=== PATIENT | female | born 2000 | race Caucasian/White ===

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

== ENCOUNTER 2020-10-16 04:21 | Emergency (ER) | payer BC ==
[2020-10-16 04:51] VITALS: BMI 20.2
[2020-10-16 05:18] LABS: BASO % 0.4 % (0-2.0); EOS % 0.2 % (0-4.5); HEMATOCRIT 41.7 % (32.4-45.2); HEMOGLOBIN 14.3 GM/dL (10.7-15.3); LYMPH % 10.4 % (8-40); MCH 30.1 pg (25.7-33.7); MCHC 34.3 g/dl (32.0-36.0); MEAN CELL VOLUME 87.7 fl (80-96); MEAN PLT VOLUME 6.7 fl (7.5-11.1); PLATELET COUNT 334 10^3/uL (134-434); RBC 4.76 M/mm3 (3.60-5.2); RDW 13.3 % (11.6-15.6); WHITE BLOOD COUNT 13.4 K/mm3 (4.0-10.0)
[2020-10-16] MEDS ORDERED: ACETAMINOPHEN 1000 MG/100 ML VIAL (NON FORMULARY) IVPB ONE (05:22)
[2020-10-16] MEDS ORDERED: ONDANSETRON 4 MG/2 ML VIAL IVPUSH ONE (05:22)
[2020-10-16] MEDS ORDERED: SODIUM CHLORIDE 0.9% 500 ML INFUS.BAG IV ONE (05:22)
[2020-10-16 05:30] LABS: CHLORIDE 105 mmol/L (98-107); SODIUM 138 mmol/L (136-145)
[2020-10-16 05:32] LABS: CALCIUM 9.1 mg/dL (8.5-10.1)
[2020-10-16 05:33] LABS: ALBUMIN 4.2 g/dl (3.4-5.0); ANION GAP 9 MMOL/L (8-16); BLOOD UREA NITROGEN 8.9 mg/dL (7-18); CO2 25 mmol/L (21-32); GLUCOSE,RANDOM 94 mg/dL (74-106)
[2020-10-16 05:36] LABS: CREATININE 0.8 mg/dL (0.55-1.3); SGOT/AST 17 U/L (15-37); SGPT/ALT 20 U/L (13-61)
[2020-10-16 05:37] LABS: BILIRUBIN,TOTAL 0.4 mg/dL (0.2-1); TOT PROT 7.8 g/dl (6.4-8.2)
[2020-10-16 05:38] LABS: ALK PHOS 76 U/L (45-117)
[2020-10-16] MEDS ORDERED: ONDANSETRON 4 MG/2 ML VIAL ONE (05:41)
[2020-10-16] MEDS ORDERED: ACETAMINOPHEN INJECTION 100 ML IVPB ONE (05:41)
[2020-10-16 06:37] LABS: URINE APPEARANCE CLEAR; URINE BILIRUBIN NEGATIVE (NEGATIVE); URINE COLOR YELLOW; URINE GLUCOSE (UA) NEGATIVE (NEGATIVE); URINE KETONE NEGATIVE (NEGATIVE); URINE LEUK ESTERASE NEGATIVE (NEGATIVE); URINE NITRITE NEGATIVE (NEGATIVE); URINE PROTEIN NEGATIVE (NEGATIVE); URINE UROBILINOGEN 0.2 mg/dL (0.2-1.0)
[2020-10-16 07:18] VITALS: BP 92/50; PULSE 67; TEMP 98.6
== END 2020-10-16 07:50 | disposition home or self-care (01) ==
LOC: JER 04:21
PROC: 3E033NZ Introduction of Analgesics, Hypnotics, Sedatives into Peripheral Vein, Percutaneous Approach (ICD-10-PCS; principal; 2020-10-16)
PROC: 3E033GC Introduction of Other Therapeutic Substance into Peripheral Vein, Percutaneous Approach (ICD-10-PCS; 2020-10-16)
DX: R07.9 Chest pain, unspecified (principal)
CPT/HCPCS: 36415; 71046-TC-FY; 80053; 81003; 82550; 84484; 84703; 85025; 87086; 93005; 93010; 99284-25; C9803; J0131; U0003; U0005

== ENCOUNTER 2020-10-31 10:25 | Emergency (ER) | payer BC ==
[2020-10-31 10:28] VITALS: BP 116/69; PULSE 67; TEMP 98; BMI 20.2
[2020-10-31] MEDS ORDERED: KETOROLAC TROMETHAMINE 30 MG/1 ML VIAL IM ONE (11:25)
[2020-10-31] MEDS ORDERED: DEXAMETHASONE SOD PHOSPHATE 10 MG/1 ML VIAL ONE (11:26)
[2020-10-31] MEDS ORDERED: KETOROLAC TROMETHAMINE 30 MG/1 ML VIAL ONE (11:27)
[2020-10-31] MEDS ORDERED: DEXAMETHASONE 4 MG TABLET (FP) PO ONE (11:30)
== END 2020-10-31 11:36 | disposition home or self-care (01) ==
LOC: JER 10:25
PROC: 3E0233Z Introduction of Anti-inflammatory into Muscle, Percutaneous Approach (ICD-10-PCS; principal; 2020-10-31)
DX: R07.0 Pain in throat (principal)
CPT/HCPCS: 87880; 99284-25; C9803; U0003; U0005

== ENCOUNTER 2021-01-26 11:30 | Emergency (ER) | payer BC ==
[2021-01-26 12:03] VITALS: BP 116/63; PULSE 88; TEMP 98.1; BMI 20.2
[2021-01-26 12:55] LABS: PH,URINE 5.5 (5.0-8.0); URINE APPEARANCE CLEAR; URINE BILIRUBIN NEGATIVE (NEGATIVE); URINE COLOR YELLOW; URINE GLUCOSE (UA) NEGATIVE (NEGATIVE); URINE KETONE NEGATIVE (NEGATIVE); URINE LEUK ESTERASE NEGATIVE (NEGATIVE); URINE NITRITE NEGATIVE (NEGATIVE); URINE PROTEIN NEGATIVE (NEGATIVE); URINE UROBILINOGEN 0.2 mg/dL (0.2-1.0)
[2021-01-26 12:58] LABS: HCG,QUALITATIVE URINE Negative
[2021-01-26] MEDS ORDERED: ONDANSETRON *ODT* 4 MG TABLET SL ONE (13:50)
[2021-01-26] MEDS ORDERED: ONDANSETRON *ODT* 4 MG TABLET ONE (13:52)
== END 2021-01-26 14:10 | disposition home or self-care (01) ==
LOC: JERFT 11:30 → JER 11:30 → JERFT 14:10
DX: R11.0 Nausea (principal)
CPT/HCPCS: 36415; 81003; 84702; 84703; 86850; 86900; 86901; 87086; 87491; 87591; 99283-25; Q0162

== ENCOUNTER 2021-03-14 21:23 | Emergency (ER) | payer BC ==
[2021-03-14 21:31] VITALS: BP 118/78; PULSE 78; TEMP 98.2; BMI 22.2
== END 2021-03-14 23:05 | disposition home or self-care (01) ==
LOC: JERFT 21:23 → JER 21:23 → JERFT 23:05
DX: O21.1 Hyperemesis gravidarum with metabolic disturbance (principal); Z32.01 Encounter for pregnancy test, result positive
CPT/HCPCS: 81003; 84703; 99283-25

== ENCOUNTER 2021-07-07 19:06 | Emergency (ER) | payer BC ==
[2021-07-07 19:20] VITALS: BP 99/60; PULSE 93; BMI 23.2
[2021-07-07 19:35] VITALS: TEMP 97.8
[2021-07-09 10:07] LABS: SARS-CoV-2 NAA Not Detected (Not Detected)
== END 2021-07-07 20:33 | disposition home or self-care (01) ==
LOC: JERFT 19:06
DX: O99.512 Diseases of the respiratory system complicating pregnancy, second trimester (principal); Z3A.16 16 weeks gestation of pregnancy
CPT/HCPCS: 87651; 87804; 99283-25; C9803-CS; U0003; U0005

== ENCOUNTER 2021-09-07 13:02 | Emergency (ER) | payer BC ==
[2021-09-07 13:17] VITALS: BMI 23.4
[2021-09-07] MEDS ORDERED: SODIUM CHLORIDE 1,000 ML IV STA (15:14)
[2021-09-07 16:36] LABS: BASO % 0.2 % (0-2.0); EOS % 0.7 % (0-4.5); HEMATOCRIT 32.8 % (32.4-45.2); HEMOGLOBIN 10.6 GM/dL (10.7-15.3); MCHC 32.4 g/dl (32.0-36.0); MEAN CELL VOLUME 86.2 fl (80-96); MEAN PLT VOLUME 6.3 fl (7.5-11.1); MONO % 7.2 % (3.8-10.2); NEUT % 81.9 % (42.8-82.8); PLATELET COUNT 287 10^3/uL (134-434); RBC 3.81 M/mm3 (3.60-5.2); RDW 13.6 % (11.6-15.6); WHITE BLOOD COUNT 12.1 K/mm3 (4.0-10.0)
[2021-09-07 16:40] LABS: EPI CELLS >36 /uL (0-25.1); HYALINE CASTS 1 /uL (0-3.1); PH,URINE 7.5 (5.0-8.0); URINE APPEARANCE TURBID; URINE BACTERIA >9,000 /uL (0-1359); URINE BILIRUBIN NEGATIVE (NEGATIVE); URINE COLOR YELLOW; URINE GLUCOSE (UA) NEGATIVE (NEGATIVE); URINE KETONE NEGATIVE (NEGATIVE); URINE LEUK ESTERASE 3+ (NEGATIVE); URINE NITRITE NEGATIVE (NEGATIVE); URINE PROTEIN TRACE (NEGATIVE); URINE RBC 15 /uL (0-23.9); URINE UROBILINOGEN 0.2 mg/dL (0.2-1.0); URINE WBC 3491 /uL (0-25.8)
[2021-09-07 16:53] VITALS: BP 112/72
[2021-09-07 16:54] LABS: CALCIUM 8.9 mg/dL (8.5-10.1)
[2021-09-07 16:55] LABS: ALBUMIN 2.9 g/dl (3.4-5.0); BLOOD UREA NITROGEN 4.3 mg/dL (7-18)
[2021-09-07 16:58] LABS: CREATININE 0.4 mg/dL (0.55-1.3)
[2021-09-07 17:00] LABS: BILIRUBIN,TOTAL 0.4 mg/dL (0.2-1); TOT PROT 6.6 g/dl (6.4-8.2)
[2021-09-07 17:18] VITALS: PULSE 68; TEMP 97.8
== END 2021-09-07 17:30 | disposition home or self-care (01) ==
LOC: JER 13:02
PROC: 3E0337Z Introduction of Electrolytic and Water Balance Substance into Peripheral Vein, Percutaneous Approach (ICD-10-PCS; principal; 2021-09-07)
DX: O23.593 Infection of other part of genital tract in pregnancy, third trimester (principal); R42 Dizziness and giddiness; Z3A.30 30 weeks gestation of pregnancy
CPT/HCPCS: 36415; 80053; 81003; 84702; 84703; 85025; 87077; 87086; 93005; 93010; 99284-25

== ENCOUNTER 2021-10-07 17:08 | Inpatient (IN) | payer BC ==
[2021-10-07 17:24] VITALS: BMI 24.2
[2021-10-07] MEDS ORDERED: SODIUM CHLORIDE 1,000 ML IV STA (17:54)
[2021-10-07 18:29] LABS: BASO % 0.2 % (0-2.0); HEMATOCRIT 29.6 % (32.4-45.2); LYMPH % 14.9 % (8-40); MCH 27.3 pg (25.7-33.7); MCHC 33.8 g/dl (32.0-36.0); MEAN CELL VOLUME 80.7 fl (80-96); MEAN PLT VOLUME 6.3 fl (7.5-11.1); MONO % 8.7 % (3.8-10.2); NEUT % 75.2 % (42.8-82.8); PLATELET COUNT 254 10^3/uL (134-434); RBC 3.67 M/mm3 (3.60-5.2); RDW 14.4 % (11.6-15.6); WHITE BLOOD COUNT 10.9 K/mm3 (4.0-10.0)
[2021-10-07 18:39] LABS: INR 0.94 (0.83-1.09); PROTHROMBIN TIME (PATIENT) 10.8 SEC (9.7-13.0)
[2021-10-07 18:50] LABS: ALBUMIN 2.7 g/dl (3.4-5.0); CALCIUM 8.5 mg/dL (8.5-10.1)
[2021-10-07 18:51] LABS: BLOOD UREA NITROGEN 4.1 mg/dL (7-18); MAGNESIUM 1.9 mg/dL (1.8-2.4)
[2021-10-07 18:53] LABS: CREATININE 0.4 mg/dL (0.55-1.3)
[2021-10-07 18:55] LABS: BILIRUBIN,TOTAL 0.3 mg/dL (0.2-1); TOT PROT 6.4 g/dl (6.4-8.2)
[2021-10-07 20:19] LABS: EPI CELLS >36 /uL (0-25.1); HYALINE CASTS 1 /uL (0-3.1); PH,URINE 7.5 (5.0-8.0); URINE APPEARANCE CLOUDY; URINE BACTERIA >9,000 /uL (0-1359); URINE BILIRUBIN NEGATIVE (NEGATIVE); URINE COLOR YELLOW; URINE GLUCOSE (UA) NEGATIVE (NEGATIVE); URINE KETONE NEGATIVE (NEGATIVE); URINE LEUK ESTERASE 3+ (NEGATIVE); URINE NITRITE NEGATIVE (NEGATIVE); URINE PROTEIN NEGATIVE (NEGATIVE); URINE RBC 8 /uL (0-23.9); URINE UROBILINOGEN 0.2 mg/dL (0.2-1.0); URINE WBC 1463 /uL (0-25.8)
[2021-10-07] MEDS ORDERED: ceFAZolin SODIUM 1 GM VIAL ONE (22:54)
[2021-10-07] MEDS: CEFAZOLIN SODIUM 2 GM in DEXTROSE 5%-WATER 100 ML IVPB SCH (23:20)
[2021-10-07] MEDS: ACETAMINOPHEN 325 MG TABLET (FP) PO PRN (23:45)
[2021-10-08] MEDS: ACETAMINOPHEN 325 MG TABLET (FP) PO PRN (09:56)
[2021-10-08] MEDS: CEFAZOLIN SODIUM 2 GM in DEXTROSE 5%-WATER 100 ML IVPB SCH (10:36)
[2021-10-08 20:22] VITALS: BP 105/66; PULSE 70; TEMP 98.9
== END 2021-10-08 21:15 | disposition home or self-care (01) | DRG 832 ==
LOC: JERFT 17:08 → JER 17:08 → JLDR 21:35 → JER 22:13 → J3W 10-08 00:33
PROVIDERS: ADMIT Specialist; ATTEND Specialist
DX: O23.43 Unspecified infection of urinary tract in pregnancy, third trimester (principal); N39.0 Urinary tract infection, site not specified; O26.53 Maternal hypotension syndrome, third trimester; R51.9 Headache, unspecified; Z3A.33 33 weeks gestation of pregnancy
CPT/HCPCS: 36415; 76775-TC; 76801-TC; 80053; 81003; 83735; 85025; 85610; 87077; 87086; 93005; 93010; 99285-25; C9803-CS; U0003; U0005

== ENCOUNTER 2021-11-08 20:15 | Observation (INO) | payer BC, OTHER ==
[2021-11-08] MEDS ORDERED: LACTATED RINGERS SOLUTION 500 ML IV ONE (22:00)
[2021-11-08] MEDS ORDERED: ZOLPIDEM TARTRATE 5 MG TABLET ONE (22:57)
[2021-11-08] MEDS ORDERED: ZOLPIDEM TARTRATE 5 MG TABLET PO ONE (23:00)
[2021-11-08] MEDS ORDERED: LACTATED RINGERS SOLUTION 1,000 ML IV SCH (23:00)
[2021-11-09 06:41] VITALS: BP 110/54; PULSE 73; RESP 18; TEMP 97.5
== END 2021-11-09 10:00 | disposition home or self-care (01) ==
LOC: JDEL 20:15 → JLDR 11-09 03:45
PROVIDERS: ADMIT Specialist; ATTEND Specialist
PROC: 3E0337Z Introduction of Electrolytic and Water Balance Substance into Peripheral Vein, Percutaneous Approach (ICD-10-PCS; principal; 2021-11-09)
DX: O47.9 False labor, unspecified (principal); E86.0 Dehydration; Z3A.37 37 weeks gestation of pregnancy
CPT/HCPCS: 96360; 96361; G0378

== ENCOUNTER 2021-11-20 20:00 | Inpatient (IN) | payer OTHER ==
[2021-11-20] MEDS ORDERED: ELECTROLYTE-148 SOLN 1,000 ML IV SCH (20:45)
[2021-11-20] MEDS ORDERED: DINOPROSTONE 10 MG VAGINAL SUPPOSITORY VG ONE (21:20)
[2021-11-20 22:32] VITALS: BMI 25.2
[2021-11-20] MEDS ORDERED: BUTORPHANOL TARTRATE 1 MG/ML VIAL IVPB ONE (23:22)
[2021-11-20] MEDS ORDERED: PROMETHAZINE HCL 25 MG/1 ML VIAL IVPUSH ONE (23:22)
[2021-11-20] MEDS ORDERED: BUTORPHANOL TARTRATE 2 MG/ML VIAL ONE (23:27)
[2021-11-20] MEDS ORDERED: PROMETHAZINE HCL 25 MG/1 ML VIAL ONE (23:27)
[2021-11-21] MEDS ORDERED: AMPICILLIN SODIUM 2 GM VIAL ONE (00:17)
[2021-11-21] MEDS ORDERED: AMPICILLIN - 2 GM in SODIUM CHLORIDE 100 ML IVPB ONE (01:00)
[2021-11-21] MEDS ORDERED: FENTANYL/BUPIVACAINE/NS/PF - PCEA - 50 ML DISP.SYRIN EP ONE (01:47)
[2021-11-21] MEDS ORDERED: NALOXONE HCL 0.4 MG/ML VIAL IVPUSH PRN (02:17)
[2021-11-21] MEDS ORDERED: FENTANYL/BUPIVACAINE/NS/PF - PCEA - 50 ML DISP.SYRIN EP SCH (02:30)
[2021-11-21] MEDS ORDERED: AMPICILLIN SODIUM 1 GM VIAL ONE (03:59)
[2021-11-21] MEDS ORDERED: OXYTOCIN 20 UNITS in 0.9% NS 20 UNIT/1,000 ML INFUS.BAG IV ONE (04:48)
[2021-11-21] MEDS ORDERED: LIDOCAINE HCL 1% PRESERVATIVE FREE - 30ML VIAL ONE (04:49)
[2021-11-21] MEDS ORDERED: AMPICILLIN - 1 GM in SODIUM CHLORIDE 100 ML IVPB SCH (05:15)
[2021-11-21] MEDS ORDERED: OXYTOCIN 30 UNITS in 0.9% NS 30 UNIT/500 ML INFUS.BAG IVPB SCH (06:00)
[2021-11-21] MEDS ORDERED: WITCH HAZEL 50% (TUCKS) 40 PAD/JAR PAD TP PRN (06:40)
[2021-11-21] MEDS ORDERED: ACETAMINOPHEN 325 MG TABLET (FP) PO PRN (06:40)
[2021-11-21] MEDS ORDERED: oxyCODONE HCL 5 MG TABLET PO PRN (06:40)
[2021-11-21] MEDS ORDERED: METHYLERGONOVINE MALEATE 0.2 MG/1 ML AMP IM PRN (06:40)
[2021-11-21] MEDS ORDERED: BENZOCAINE 20% 57 GM BOTTLE TP PRN (06:40)
[2021-11-21] MEDS ORDERED: BENZOCAINE 28 GM HEMORRHOIDAL OINTMENT TP PRN (06:40)
[2021-11-21] MEDS ORDERED: BISACODYL 10 MG SUPP.RECT RC PRN (06:40)
[2021-11-21] MEDS ORDERED: OXYTOCIN 20 UNITS in 0.9% NS 20 UNIT/1,000 ML INFUS.BAG IV SCH (06:45)
[2021-11-21] MEDS: IBUPROFEN 600 MG TABLET (FP) PO PRN ×2 (15:30→23:56)
[2021-11-22 08:31] LABS: BASO % 0.4 % (0-2.0); EOS % 1.3 % (0-4.5); HEMATOCRIT 22.2 % (32.4-45.2); LYMPH % 21.5 % (8-40); MCH 23.1 pg (25.7-33.7); MCHC 31.4 g/dl (32.0-36.0); MEAN CELL VOLUME 73.8 fl (80-96); MEAN PLT VOLUME 6.8 fl (7.5-11.1); MONO % 9.3 % (3.8-10.2); NEUT % 67.5 % (42.8-82.8); PLATELET COUNT 244 10^3/uL (134-434); RBC 3.01 M/mm3 (3.60-5.2); RDW 16.7 % (11.6-15.6); WHITE BLOOD COUNT 11.3 K/mm3 (4.0-10.0)
[2021-11-22] MEDS: IBUPROFEN 600 MG TABLET (FP) PO PRN ×2 (14:53→23:40)
[2021-11-22] MEDS ORDERED: SENNOSIDES/DOCUSATE COMBO (SENNA PLUS) TABLET (UD) PO PRN (22:00)
[2021-11-23 10:19] VITALS: BP 102/69; PULSE 96; RESP 16; TEMP 98.3
[2021-11-23] MEDS: IBUPROFEN 600 MG TABLET (FP) PO PRN (10:42)
== END 2021-11-23 11:25 | disposition home or self-care (01) | DRG 560 ==
LOC: JLDR 20:00 → J3W 11-21 08:20
PROVIDERS: ADMIT Specialist; ATTEND Specialist
PROC: 3E0P7VZ Introduction of Hormone into Female Reproductive, Via Natural or Artificial Opening (ICD-10-PCS; 2021-11-20)
PROC: 10E0XZZ Delivery of Products of Conception, External Approach (ICD-10-PCS; principal; 2021-11-21)
PROC: 0W8NXZZ Division of Female Perineum, External Approach (ICD-10-PCS; 2021-11-21)
DX: O99.824 Streptococcus B carrier state complicating childbirth (principal); Z3A.39 39 weeks gestation of pregnancy; Z37.0 Single live birth
CPT/HCPCS: 36415; 59409; 85025

== ENCOUNTER 2021-12-15 20:00 | Emergency (ER) | payer BC, OTHER ==
[2021-12-15 20:19] VITALS: BP 95/63; PULSE 95; RESP 18; TEMP 99; BMI 21.8
[2021-12-15] MEDS ORDERED: IBUPROFEN 600 MG TABLET (FP) PO ONE ×2 (21:15→21:24)
== END 2021-12-16 00:24 | disposition home or self-care (01) ==
LOC: JER 20:00
DX: U07.1 COVID-19 (principal)
CPT/HCPCS: 0241U-QW; 99283-25

== ENCOUNTER 2022-03-11 19:36 | Emergency (ER) | payer OTHER ==
[2022-03-11 19:44] VITALS: BP 103/73; PULSE 94; RESP 18; TEMP 99.2; BMI 24.2
[2022-03-11] MEDS ORDERED: SODIUM CHLORIDE 0.9% 500 ML INFUS.BAG IV ONE (21:05)
[2022-03-11] MEDS ORDERED: KETOROLAC TROMETHAMINE 30 MG/1 ML VIAL IVPUSH ONE (21:05)
[2022-03-11] MEDS ORDERED: ONDANSETRON 4 MG/2 ML VIAL IVPUSH ONE (22:03)
[2022-03-11] MEDS ORDERED: ONDANSETRON 4 MG/2 ML VIAL ONE (22:12)
[2022-03-11 23:09] LABS: PH,URINE 5.5 (5.0-8.0); URINE APPEARANCE CLEAR; URINE BILIRUBIN NEGATIVE (NEGATIVE); URINE COLOR YELLOW; URINE GLUCOSE (UA) NEGATIVE (NEGATIVE); URINE KETONE NEGATIVE (NEGATIVE); URINE LEUK ESTERASE NEGATIVE (NEGATIVE); URINE NITRITE NEGATIVE (NEGATIVE); URINE PROTEIN TRACE (NEGATIVE); URINE UROBILINOGEN 0.2 mg/dL (0.2-1.0)
[2022-03-11] MEDS ORDERED: METOCLOPRAMIDE HCL INJECTION 10 MG/2 ML VIAL IVPUSH ONE (23:18)
[2022-03-11] MEDS ORDERED: ACETAMINOPHEN 500 MG TABLET (FP) PO ONE (23:18)
[2022-03-11] MEDS ORDERED: METOCLOPRAMIDE HCL INJECTION 10 MG/2 ML VIAL ONE (23:39)
[2022-03-12] MEDS ORDERED: ACETAMINOPHEN 500 MG TABLET (FP) ONE (00:14)
[2022-03-12] MEDS ORDERED: KETOROLAC TROMETHAMINE 30 MG/1 ML VIAL ONE (00:14)
== END 2022-03-12 00:23 | disposition home or self-care (01) ==
LOC: JER 19:36
PROC: 3E033GC Introduction of Other Therapeutic Substance into Peripheral Vein, Percutaneous Approach (ICD-10-PCS; principal; 2022-03-11)
DX: B34.9 Viral infection, unspecified (principal)
CPT/HCPCS: 0241U-QW; 71046-TC-FY; 81003; 84703; 87086; 99284-25

== ENCOUNTER 2022-03-26 17:03 | Emergency (ER) | payer OTHER ==
[2022-03-26 17:25] VITALS: BP 113/59; PULSE 86; RESP 16; TEMP 100.1; BMI 24.2
[2022-03-26 18:27] LABS: EPI CELLS 31 /uL (0-25.1); HYALINE CASTS 2 /uL (0-3.1); PH,URINE 5.5 (5.0-8.0); URINE APPEARANCE CLOUDY; URINE BACTERIA 245 /uL (0-1359); URINE BILIRUBIN NEGATIVE (NEGATIVE); URINE COLOR YELLOW; URINE GLUCOSE (UA) NEGATIVE (NEGATIVE); URINE KETONE NEGATIVE (NEGATIVE); URINE LEUK ESTERASE 2+ (NEGATIVE); URINE NITRITE NEGATIVE (NEGATIVE); URINE PROTEIN NEGATIVE (NEGATIVE); URINE RBC 6 /uL (0-23.9); URINE UROBILINOGEN 0.2 mg/dL (0.2-1.0); URINE WBC 110 /uL (0-25.8)
[2022-03-26 18:38] LABS: HCG,QUALITATIVE URINE Negative
== END 2022-03-26 20:59 | disposition home or self-care (01) ==
LOC: JERFT 17:03
DX: N30.90 Cystitis, unspecified without hematuria (principal); N83.201 Unspecified ovarian cyst, right side; R50.9 Fever, unspecified
CPT/HCPCS: 36415; 76830-TC; 81003; 84703; 87086; 87491; 87591; 87661; 99284-25

== ENCOUNTER 2022-10-05 20:06 | Emergency (ER) | payer OTHER ==
[2022-10-05 20:14] VITALS: BP 96/56; PULSE 75; RESP 18; TEMP 98.1; BMI 19.6
[2022-10-05] MEDS ORDERED: NAPROXEN 500 MG TABLET PO ONE (20:44)
[2022-10-05] MEDS ORDERED: LIDOCAINE 5% TOPICAL PATCH TP ONE (20:44)
[2022-10-05] MEDS ORDERED: NAPROXEN 500 MG TABLET ONE (20:46)
[2022-10-05] MEDS ORDERED: LIDOCAINE 5% TOPICAL PATCH ONE (20:46)
[2022-10-05 21:38] LABS: HCG,QUALITATIVE URINE Negative
[2022-10-05 21:39] LABS: EPI CELLS 32 /uL (0-25.1); HYALINE CASTS 0 /uL (0-3.1); PH,URINE 7.5 (5.0-8.0); URINE APPEARANCE CLEAR; URINE BACTERIA 81 /uL (0-1359); URINE BILIRUBIN NEGATIVE (NEGATIVE); URINE COLOR YELLOW; URINE GLUCOSE (UA) NEGATIVE (NEGATIVE); URINE KETONE TRACE (NEGATIVE); URINE LEUK ESTERASE TRACE (NEGATIVE); URINE NITRITE NEGATIVE (NEGATIVE); URINE PROTEIN NEGATIVE (NEGATIVE); URINE RBC 45 /uL (0-23.9); URINE WBC 10 /uL (0-25.8)
[2022-10-05] MEDS ORDERED: LIDOCAINE PATCH REMOVAL MC ONE (22:00)
== END 2022-10-05 21:54 | disposition home or self-care (01) ==
LOC: JERFT 20:06
DX: M54.50 Low back pain, unspecified (principal); N39.0 Urinary tract infection, site not specified
CPT/HCPCS: 81003; 84703; 87077; 87086; 99283-25

== ENCOUNTER 2023-05-23 22:29 | Emergency (ER) | payer OTHER ==
[2023-05-23 22:40] VITALS: BP 100/57; PULSE 92; RESP 20; TEMP 98.9; BMI 19.1
[2023-05-23] MEDS ORDERED: ACETAMINOPHEN 650 MG/20.3 ML ORAL SOLUTION (CUPS) ONE (23:43)
[2023-05-23] MEDS: ACETAMINOPHEN 160 MG/5 ML *Children Solution PO ONE (23:56)
== END 2023-05-24 00:25 | disposition home or self-care (01) ==
LOC: JER 22:29
DX: J02.9 Acute pharyngitis, unspecified (principal); Z20.822 Contact with and (suspected) exposure to COVID-19
CPT/HCPCS: 0241U-QW; 87070; 99283-25

== ENCOUNTER 2023-11-19 22:41 | Emergency (ER) | payer OTHER ==
[2023-11-19 22:51] VITALS: BP 124/87; PULSE 65; RESP 18; TEMP 97.7; BMI 20.2
[2023-11-19] MEDS ORDERED: ACETAMINOPHEN INJECTION 100 ML ONE (23:30)
[2023-11-19] MEDS ORDERED: MAGNESIUM 1GM/D5W - 1 GM/100 ML IVPB IVPB ONE (23:31)
[2023-11-20] MEDS: MAGNESIUM 1GM/D5W - 1 GM/100 ML IVPB IVPB ONE (00:03)
[2023-11-20] MEDS: LACTATED RINGERS SOLUTION 1000 ML INFUS.BAG IV ONE (00:03)
[2023-11-20] MEDS: ACETAMINOPHEN 500 MG TABLET (FP) PO ONE (00:03)
[2023-11-20 00:08] LABS: BASO % 0.6 % (0-2.0); EOS % 2.6 % (0-4.5); HEMATOCRIT 40.1 % (32.4-45.2); HEMOGLOBIN 13.2 GM/dL (10.7-15.3); LYMPH % 36.3 % (8-40); MCH 28.2 pg (25.7-33.7); MCHC 32.9 g/dl (32.0-36.0); MEAN CELL VOLUME 85.8 fl (80-96); MEAN PLT VOLUME 6.6 fl (7.5-11.1); MONO % 8.8 % (3.8-10.2); NEUT % 51.7 % (42.8-82.8); PH,URINE 6.5 (5.0-8.0); PLATELET COUNT 266 10^3/uL (134-434); RBC 4.68 M/mm3 (3.60-5.2); RDW 14.8 % (11.6-15.6); URINE APPEARANCE CLEAR; URINE BILIRUBIN NEGATIVE (NEGATIVE); URINE COLOR YELLOW; URINE GLUCOSE (UA) NEGATIVE (NEGATIVE); URINE KETONE TRACE (NEGATIVE); URINE LEUK ESTERASE NEGATIVE (NEGATIVE); URINE NITRITE NEGATIVE (NEGATIVE); URINE PROTEIN NEGATIVE (NEGATIVE); WHITE BLOOD COUNT 7.3 K/mm3 (4.0-10.0)
[2023-11-20 00:25] LABS: POTASSIUM 3.7 mmol/L (3.5-5.1)
[2023-11-20 00:27] LABS: BLOOD UREA NITROGEN 14.8 mg/dL (7-18)
[2023-11-20 00:30] LABS: CREATININE 0.7 mg/dL (0.55-1.3)
[2023-11-20] MEDS: KETOROLAC TROMETHAMINE 30 MG/1 ML VIAL IVPUSH ONE (01:26)
[2023-11-20] MEDS ORDERED: PROCHLORPERAZINE INJECTION 10 MG/2 ML VIAL ONE (01:27)
[2023-11-20] MEDS: PROCHLORPERAZINE INJECTION 10 MG/2 ML VIAL IVPB ONE (01:27)
[2023-11-20] MEDS ORDERED: KETOROLAC TROMETHAMINE 30 MG/1 ML VIAL ONE (01:28)
[2023-11-20 01:43] LABS: HIV INTERPRETATION NEGATIVE (NEGATIVE)
== END 2023-11-20 02:26 | disposition home or self-care (01) ==
LOC: JER 22:41
PROC: 3E033GC Introduction of Other Therapeutic Substance into Peripheral Vein, Percutaneous Approach (ICD-10-PCS; principal; 2023-11-20)
PROC: 3E0333Z Introduction of Anti-inflammatory into Peripheral Vein, Percutaneous Approach (ICD-10-PCS; 2023-11-20)
PROC: 3E033GC Introduction of Other Therapeutic Substance into Peripheral Vein, Percutaneous Approach (ICD-10-PCS; 2023-11-20)
DX: G43.909 Migraine, unspecified, not intractable, without status migrainosus (principal)
CPT/HCPCS: 36415; 80048; 81003; 84703; 85025; 86803; 87389; 99284-25

== ENCOUNTER 2023-12-22 21:01 | Emergency (ER) | payer OTHER ==
[2023-12-22 21:07] VITALS: BP 103/61; PULSE 73; RESP 18; TEMP 97.7; BMI 20.7
[2023-12-22 23:11] LABS: BASO % 0.5 % (0-2.0); EOS % 1.8 % (0-4.5); HEMATOCRIT 38.8 % (32.4-45.2); HEMOGLOBIN 12.9 GM/dL (10.7-15.3); LYMPH % 27.6 % (8-40); MCH 29.1 pg (25.7-33.7); MCHC 33.4 g/dl (32.0-36.0); MEAN PLT VOLUME 6.7 fl (7.5-11.1); MONO % 9.2 % (3.8-10.2); NEUT % 60.9 % (42.8-82.8); PLATELET COUNT 291 10^3/uL (134-434); RBC 4.46 M/mm3 (3.60-5.2); RDW 14.9 % (11.6-15.6); WHITE BLOOD COUNT 7.7 K/mm3 (4.0-10.0)
[2023-12-22 23:17] LABS: INR 0.96 (0.83-1.09); PROTHROMBIN TIME (PATIENT) 11.1 SEC (9.7-13.0)
[2023-12-22 23:20] LABS: ACTIVATED PTT 30.8 SECONDS (25.2-36.5)
[2023-12-22 23:24] LABS: HCG,QUALITATIVE URINE Negative
[2023-12-22 23:30] LABS: POTASSIUM 3.8 mmol/L (3.5-5.1)
[2023-12-22 23:34] LABS: CALCIUM 9.1 mg/dL (8.5-10.1)
[2023-12-22 23:35] LABS: ALBUMIN 3.9 g/dl (3.4-5.0); BLOOD UREA NITROGEN 15.7 mg/dL (7-18)
[2023-12-22 23:38] LABS: CREATININE 0.7 mg/dL (0.55-1.3)
[2023-12-22 23:40] LABS: BILIRUBIN,TOTAL 0.6 mg/dL (0.2-1)
[2023-12-23 01:07] LABS: EPI CELLS 26 /uL (0-25.1); HYALINE CASTS 0 /uL (0-3.1); URINE APPEARANCE CLEAR; URINE BACTERIA 39 /uL (0-1359); URINE BILIRUBIN NEGATIVE (NEGATIVE); URINE COLOR YELLOW; URINE GLUCOSE (UA) NEGATIVE (NEGATIVE); URINE KETONE NEGATIVE (NEGATIVE); URINE LEUK ESTERASE NEGATIVE (NEGATIVE); URINE NITRITE NEGATIVE (NEGATIVE); URINE PROTEIN TRACE (NEGATIVE); URINE RBC 32 /uL (0-23.9); URINE WBC 8 /uL (0-25.8)
== END 2023-12-23 02:24 | disposition home or self-care (01) ==
LOC: JER 21:01
DX: T83.83XA Hemorrhage due to genitourinary prosthetic devices, implants and grafts, initial encounter (principal)
CPT/HCPCS: 36415; 76830-TC; 80053; 81003; 84703; 85025; 85610; 85730; 87086; 99284-25